=== PATIENT | female | born 1990 | race Two or more races ===

== ENCOUNTER 2022-12-27 19:01 | Emergency (ER) | payer BC, MEDICAID ==
[~2022-12-27] VITALS: Ht 157.5 cm; Wt 82.2 kg
[2022-12-27 20:52] VITALS: BP 130/57; PULSE 64; RESP 15; TEMP 98.3; O2SAT 96
[2022-12-27] MEDS ORDERED: NEOMYCIN-BACITRACIN-POLYM UNITDOSE PKG TOP OINT TOP ONE (21:00)
[2022-12-27] MEDS ORDERED: HYDROcodone-ACET 5/325MG TAB PO ONE (21:00)
[2022-12-27] MEDS ORDERED: LIDOCAINE 1% HCL (LOCAL ANESTH.) INJ 20ML MDV ID ONE (21:00)
[2022-12-27] MEDS ORDERED: CEPH500C PO (21:30)
[2022-12-27] MEDS ORDERED: CEPHALEXIN 250 MG CAP PO ONE (21:30)
[2022-12-27] MEDS ORDERED: IBUP-1454 PO (21:30)
[2022-12-27] MEDS ORDERED: MUPI2OIN2 EX (21:30)
== END 2022-12-28 04:18 | disposition home or self-care (01) ==
LOC: ER 19:02
DX: L60.0 Ingrowing nail (principal); Z79.1 Long term (current) use of non-steroidal anti-inflammatories (NSAID); Z79.899 Other long term (current) drug therapy
CPT/HCPCS: 11730; 99284; J2001

== ENCOUNTER 2023-09-09 06:47 | Emergency (ER) | payer BC, OTHER ==
[~2023-09-09] VITALS: Ht 157.5 cm; Wt 91.5 kg
[~2023-09-09 06:47] MED LIST: CEPH500C PO; IBUP-1454 PO; MUPI2OIN2 EX
[2023-09-09 08:45] VITALS: BP 147/72; PULSE 75; RESP 18; TEMP 97.8; O2SAT 98
[2023-09-09] MEDS ORDERED: METH-1181 PO (08:55)
[2023-09-09] MEDS ORDERED: NAP500T PO (08:55)
== END 2023-09-09 08:59 | disposition home or self-care (01) ==
LOC: ER 06:47
DX: M79.10 Myalgia, unspecified site (principal); Z79.1 Long term (current) use of non-steroidal anti-inflammatories (NSAID); Z79.899 Other long term (current) drug therapy; V43.52XA Car driver injured in collision with other type car in traffic accident, initial encounter; Y93.89 Activity, other specified; Y92.410 Unspecified street and highway as the place of occurrence of the external cause; Y99.8 Other external cause status

== ENCOUNTER 2023-12-16 22:41 | Emergency (ER) | payer BC, OTHER ==
[~2023-12-16] VITALS: Ht 157.5 cm; Wt 92.5 kg
[~2023-12-16 22:41] MED LIST changes: +METH-1181 PO; +NAP500T PO
[2023-12-17 00:15] LABS: Urine Bacteria None Seen /hpf (None Seen)
[2023-12-17 00:35] LABS: Urine Blood 3+ /uL (Negative); Urine Clarity Ex.Turbid (Clear); Urine Color Light-Orange (Yellow); Urine Protein, UAD 1+ (Negative); Urine Specific Gravity 1.025 (1.001-1.035); Urine Urobilinogen Normal (Negative); Urine WBC 711 /hpf (0 - 5); Urine WBC Clumps PRESENT /hpf (None Seen); Urine pH 5.5 (5.0-9.0)
[2023-12-17] MEDS ORDERED: NITR-87 PO (01:07)
[2023-12-17 01:53] VITALS: BP 121/74; TEMP 97.9
[2023-12-17 01:54] VITALS: PULSE 66; RESP 16; O2SAT 98
== END 2023-12-17 01:59 | disposition home or self-care (01) ==
LOC: ER 22:41
DX: N39.0 Urinary tract infection, site not specified (principal); Z79.899 Other long term (current) drug therapy; Z79.1 Long term (current) use of non-steroidal anti-inflammatories (NSAID)
CPT/HCPCS: 81001